=== PATIENT | male | born 1970 | race Caucasian/White ===

== ENCOUNTER 2018-10-22 18:34 | Emergency (ER) | payer BC ==
[~2018-10-22] VITALS: Ht 172.7 cm; Wt 75.1 kg
[2018-10-22 19:06] VITALS: Ht 172.7 cm; Wt 75.1 kg
[2018-10-22] MEDS ORDERED: IPRATROPIUM (NEB) 0.5 MG/2.5 ML AMP INH STA (22:00)
[2018-10-22] MEDS ORDERED: ACETAMINOPHEN 325 MG TAB PO ONE (22:00)
[2018-10-22] MEDS ORDERED: ALBUTEROL 0.5% (NEB) 2.5 MG/0.5 ML AMP INH STA (22:00)
[2018-10-23] MEDS ORDERED: KETOROLAC 30 MG INJ IV STA (00:24)
[2018-10-23] MEDS ORDERED: DEXAMETHASONE 10 MG/ML 1 ML INJ IV ONE (00:30)
[2018-10-23] MEDS ORDERED: AZIT250T PO (01:53)
[2018-10-23] MEDS ORDERED: ALBU18HF INHALATION (01:53)
[2018-10-23] MEDS ORDERED: IBUP-1542 PO (01:53)
[2018-10-23] MEDS ORDERED: BENZ-6 PO (01:53)
--- NOTE | 2018-10-23 02:05 | ERD ---
ER Documentation Chief Complaint Chief Complaint fever and body aches- doesnt feel good since this AM HPI 48-year-old male patient with a past medical history of diabetes and asthma presents to ED complaining of a productive cough, with chest pain, headache, body aches and chills that started earlier this morning. Reports that his granddaughter is also sick with similar symptoms. States that he has not taking any medications. Denies any nausea, vomiting, diarrhea, neck stiffness, abdominal pain. Reports that he takes Lantus and Humulin at home. ROS All systems reviewed and are negative except as per history of present illness. Medications Home Meds Active Scripts Azithromycin* (Zithromax*) 250 Mg Tablet, 250 MG PO .ZPACK DIRECTED, #6 TAB TAKE 500 MG (2 TABS) THE FIRST DAY THEN 250 MG (1 TAB) DAYS 2-5 Prov:LILI BALL PA-C 10/23/18 Ibuprofen* (Motrin*) 600 Mg Tab, 600 MG PO Q6, #30 TAB Prov:LILI BALL PA-C 10/23/18 Albuterol Sulfate* (Ventolin HFA*) 18 Gm Hfa.aer.ad, 2 PUFF INHALATION Q4H, #1 INHALER Prov:LILI BALL PA-C 10/23/18 Benzonatate* (Tessalon Perle*) 100 Mg Capsule, 100 MG PO Q8H PRN for COUGH, #20 CAP Prov:LILI BALL PA-C 10/23/18 PMhx/Soc Medical and Surgical Hx: pt denies Medical Hx, pt denies Surgical Hx Hx Alcohol Use: No Hx Substance Use: No Hx Tobacco Use: No Smoking Status: Never smoker FmHx Family History: No diabetes, No coronary disease Physical Exam Vitals Vital Signs Date Temp Pulse Resp B/P (MAP) Pulse Ox O2 O2 Flow FiO2 Time Delivery Rate 10/23/18 98.1 86 20 112/75 96 Room Air 02:27 (87) 10/22/18 20 95 Room Air 23:53 10/22/18 20 90 Room Air 23:44 10/22/18 92 18 95 21 22:20 10/22/18 100.3 100 20 144/62 99 19:06 (89) Physical Exam Const: Yxt-yga-trxrtxujm, well-nourished. In no acute distress. Head: Atraumatic, normocephalic Eyes: Normal Conjunctiva without injection. No purulent discharge. PERRL. EOMI ENT: Normal external ear. Ear canal without erythema. Tympanic membrane pearly adkins without effusion or bulging. Nasal canal clear with normal turbinates. Moist oropharynx without tonsillar exudates. Non-erythematous pharynx. Uvula midline. No drooling. No trismus. Neck: Full range of motion. No meningismus. No cervical lymphadenopathy. Resp: Inspiratory and expiratory wheezing noted. No rhonchi, rales, or crackles. No accessory muscle use. No retractions. Cardio: Regular rate and rhythm. No murmurs, rubs or gallops. Abd: Soft, non tender, non distended. Normal bowel sounds. No palpable masses. No rebound tenderness. No guarding. Skin: No petechiae or rashes Back: No midline tenderness. No CVA tenderness. Ext: No cyanosis, or edema. Neur: Awake and alert. Psych: Normal Mood and Affect Result Diagram: 10/23/186 10/23/18 0036 Results 24 hrs Laboratory Tests Test 10/22/18 23:47 10/23/18 00:36 Bedside Glucose 96 mg/dL White Blood Count 8.2 10^3/ul Red Blood Count 4.56 10^6/ul Hemoglobin 13.2 g/dl Hematocrit 39.8 % Mean Corpuscular Volume 87.3 fl Mean Corpuscular Hemoglobin 28.9 pg Mean Corpuscular Hemoglobin Concent 33.2 g/dl Red Cell Distribution Width 12.2 % Platelet Count 256 10^3/UL Mean Platelet Volume 9.4 fl Immature Granulocytes % 0.400 % Neutrophils % 75.8 % Lymphocytes % 14.7 % Monocytes % 8.9 % Eosinophils % 0.0 % Basophils % 0.2 % Nucleated Red Blood Cells % 0.0 /100WBC Immature Granulocytes # 0.030 10^3/ul Neutrophils # 6.2 10^3/ul Lymphocytes # 1.2 10^3/ul Monocytes # 0.7 10^3/ul Eosinophils # 0.0 10^3/ul Basophils # 0.0 10^3/ul Nucleated Red Blood Cells # 0.0 10^3/ul Sodium Level 139 mmol/L Potassium Level 3.8 mmol/L Chloride Level 103 mmol/L Carbon Dioxide Level 26 mmol/L Anion Gap 10 Blood Urea Nitrogen 10 mg/dl Creatinine 0.94 mg/dl Est Glomerular Filtrat Rate mL/min > 60 mL/min Glucose Level 162 mg/dl Calcium Level 9.0 mg/dl Troponin I < 0.012 ng/ml Current Medications Medications Dose Sig/Magda Start Time Status Last (Trade) Ordered Route PRN Stop Time Admin Dose Reason Admin Albuterol 10 mg ONCE STAT 10/22/18 DC 10/22/18 (Proventil INH 22:00 22:19 0.5% (Neb)) 10/22/18 22:02 Ipratropium 1 mg ONCE STAT 10/22/18 DC 10/22/18 [place] INH 22:00 22:19 (Atrovent 10/22/18 22:02 0.02% (Neb)) 650 mg ONCE ONCE 10/22/18 DC 10/22/18 Acetaminophen PO 22:00 22:06 (Tylenol 10/22/18 22:02 Tab) 10 mg ONCE ONCE 10/23/18 DC 10/23/18 Dexamethasone IV 00:30 00:43 (Decadron) 10/23/18 00:31 Ketorolac 30 mg ONCE STAT 10/23/18 DC 10/23/18 Tromethamine IV 00:24 00:43 (Toradol) 10/23/18 00:27 Procedures/MDM 48-year-old male patient with a past medical history of diabetes, asthma presents to ED complaining of fever, body aches, productive cough that started earlier this morning. Patient has a low-grade fever 100.3. Tylenol, Toradol 30 mg IV was ordered to further downtrend patient's temperature bolus to improve his pain. He was also given a breathing treatment consisting of albuterol, Atrovent, Decadron 10 mg IV with improvement of his symptoms. Patient was further worked up with CBC, BMP, troponin, chest x-ray, influenza, EKG was ordered to further evaluate patient. EKG reviewed and interpreted by Dr. Reed Rate/Rhythm: [88 bpm, Normal Sinus Rhythm] No ectopy, no ST elevations, normal axis. QRS, ST, T-waves: [No changes consistent w/ acute ischemia] Impression: [No evidence of ischemia or arrhythmia] CXR IMPRESSION: No acute disease. Influenza Negative. Patient likely has bronchitis with wheezing vs asthma exacerbation and will be given a prescription for Zithromax to cover for bacterial etiology. Low suspicion for acute myocardial infarction, pneumothorax, pneumonia, cardiac tamponade, Skmcp-Fdbnyipyq-Exard Syndrome, Brugada Syndrome, pulmonary embolism, AAA, aortic dissection, thoracic aortic dissection, endocarditis, myocarditis, pericarditis, cocaine-related ischemia, Boerhaave's syndrome, cardiac dysrhythmias,meningitis, intracranial bleed, seizure, stroke, TIA or other emergent conditions. CBC: No leukocytosis. No e/o of systemic infection. No e/o anemia. CMP: No e/o severe acidosis, alkalosis, renal failure, diabetic ketoacidosis, liver disease Low suspicion for testicular torsion, gastritis, GERD, peptic ulcer disease, cholecystitis, choledocholithiasis, cholangitis, pancreatitis, appendicitis, bowel obstruction, ileus, volvulus, nephrolithiasis, pyelonephritis, hepatitis, perforated viscus, diverticulitis, abdominal hernia, acute abdomen, mesenteric ischemia or other emergent conditions. Diagnosis: Bronchitis with wheezing, Asthma Discharge medications: Zithromax, ibuprofen, Tessalon Perles, Ventolin Follow up with primary care physician in 1-2 days. Instructed patient to return to the ED sooner for any worsening symptoms. Patient's questions were answered. Patient is hemodynamically stable. Patient understood and agreed with discharge plan. Patient discharged stable. Disclaimer: Inadvertent spelling and grammatical errors are likely due to EHR/dictation software use and do not reflect on the overall quality of patient care. Also, please note that the electronic time recorded on this note does not necessarily reflect the actual time of the patient encounter. Departure Diagnosis: Primary Impression: Fever Fever type: unspecified Qualified Codes: R50.9 - Fever, unspecified Additional Impressions: Cough Wheezing Condition: Stable Patient Instructions: Asthma, Acute (Adult), Bronchitis With Wheezing (Adult) Referrals: COMMUNITY CLINICS YOU HAVE RECEIVED A MEDICAL SCREENING EXAM AND THE RESULTS INDICATE THAT YOU DO NOT HAVE A CONDITION THAT REQUIRES URGENT TREATMENT IN THE EMERGENCY DEPARTMENT. FURTHER EVALUATION AND TREATMENT OF YOUR CONDITION CAN WAIT UNTIL YOU ARE SEEN IN YOUR DOCTORS OFFICE WITHIN THE NEXT 1-2 DAYS. IT IS YOUR RESPONSIBILITY TO MAKE AN APPOINTMENT FOR FOLOW-UP CARE. IF YOU HAVE A PRIMARY DOCTOR --you should call your primary doctor and schedule an appointment IF YOU DO NOT HAVE A PRIMARY DOCTOR YOU CAN CALL OUR PHYSICIAN REFERRAL HOTLINE AT IF YOU CAN NOT AFFORD TO SEE A PHYSICIAN YOU CAN CHOSE FROM THE FOLLOWING [facility][1] [address] [facility] [address] [facility] [address] [facility] [address] [facility] [address] [facility]. [facility] [address] [facility]. [facility] YOU HAVE RECEIVED A MEDICAL SCREENING EXAM AND THE RESULTS INDICATE THAT YOU DO NOT HAVE A CONDITION THAT REQUIRES URGENT TREATMENT IN THE EMERGENCY DEPARTMENT. FURTHER EVALUATION AND TREATMENT OF YOUR CONDITION CAN WAIT UNTIL YOU ARE SEEN IN YOUR DOCTORS OFFICE WITHIN THE NEXT 1-2 DAYS. IT IS YOUR RESPONSIBILITY TO MAKE AN APPOINTMENT FOR FOLOW-UP CARE. IF YOU HAVE A PRIMARY DOCTOR --you should call your primary doctor and schedule and appointment IF YOU DO NOT HAVE A PRIMARY DOCTOR YOU CAN CALL OUR PHYSICIAN REFERRAL HOTLINE AT . IF YOU CAN NOT AFFORD TO SEE A PHYSICIAN YOU CAN CHOSE FROM THE FOLLOWING [facility]: [facility] [address] [place] [address] [facility] [address] [place] [address] [facility] [address] [place] [address] [facility] URGENT CARE/SPECIALTIES Additional Instructions: Call your primary care doctor TOMORROW for an appointment during the next 2-3 days.See the doctor sooner or return here if your condition worsens before your appointment time. LILI BALL PA-C Oct 23, 2018 02:05
[2018-10-23 02:27] VITALS: BP 112/75; PULSE 86; RESP 20
== END 2018-10-23 02:28 | disposition home or self-care (01) ==
LOC: FTE 18:34
DX: R50.9 Fever, unspecified (principal); E11.9 Type 2 diabetes mellitus without complications; J45.901 Unspecified asthma with (acute) exacerbation; R07.9 Chest pain, unspecified; R05 Cough
CPT/HCPCS: 71045; 80048; 82962; 84484; 85025; 87400; 93005; 94644; J1100; J1885; 36415; 96374; 96375

== ENCOUNTER 2018-10-26 14:47 | Emergency (ER) | payer BC ==
[~2018-10-26] VITALS: Ht 170.2 cm; Wt 87.0 kg
[~2018-10-26 14:47] MED LIST: ALBU18HF INHALATION; AZIT250T PO; BENZ-6 PO; IBUP-1542 PO
[2018-10-26 14:57] VITALS: Ht 170.2 cm; Wt 87.0 kg
[2018-10-26] MEDS ORDERED: ALBUTEROL/IPRATROPIUM (NEB) 3 ML AMP HHN STA (18:55)
[2018-10-26] MEDS ORDERED: GUAI118L22 PO (20:38)
[2018-10-26] MEDS ORDERED: LEVO750T25 PO (20:38)
[2018-10-26] MEDS ORDERED: CETI10CA PO (20:46)
--- NOTE | 2018-10-26 21:01 | ERD ---
ER Documentation Chief Complaint Chief Complaint tired, weakness, cough dx w/ bronchitis, denies CP HPI History of Present Illness: She coming in today with complaint of cold symptoms. Associated symptoms include fatigue, weakness, productive cough with green sputum, chills, night sweats, body aches, runny nose, congestion. Recent ER visit 3 days ago, and patient was diagnosed with bronchitis; RX medications given were Ventolin, Tessalon Perles, azithromycin and ER medications include one-time dose of steroids and nebulizer treatments. No sick contacts, no recent travel. Denies nausea vomiting diarrhea constipation dysuria. Past medical history includes asthma, diabetes, eczema. Hospitalization last year due to pneumonia. At home pharmacological/nonpharmacological treatment for symptoms: Patient reports compliance of using medications that was given during last discharge. Last use of Ventolin inhaler today. Social History: Patient denies tobacco, alcohol; positive marijuana use Allergies: See nursing note. Social Concerns: Denies ROS All systems reviewed and are negative except as per history of present illness. Medications Home Meds Active Scripts Cetirizine Hcl* (Zyrtec*) 10 Mg Capsule, 10 MG PO DAILY for cough/runny nose/allergies, #10 TAB.CHEW Prov:THIAGO JORDAN NP 10/26/18 Levofloxacin* (Levaquin*) 750 Mg Tablet, 750 MG PO DAILY for 5 Days, TAB Prov:THIAGO JORDAN NP 10/26/18 Guaifenesin/Codeine Phosphate (CHERATUSSIN AC SYRUP) 118 Ml Liquid, 10 ML PO Q8, #120 ML Prov:THIAGO JORDAN NP 10/26/18 Azithromycin* (Zithromax*) 250 Mg Tablet, 250 MG PO .CaseyPACK DIRECTED, #6 TAB TAKE 500 MG (2 TABS) THE FIRST DAY THEN 250 MG (1 TAB) DAYS 2-5 Prov:LILI BALL PA-C 10/23/18 Ibuprofen* (Motrin*) 600 Mg Tab, 600 MG PO Q6, #30 TAB Prov:LILI BALL-C 10/23/18 Albuterol Sulfate* (Ventolin HFA*) 18 Gm Hfa.aer.ad, 2 PUFF INHALATION Q4H, #1 INHALER Prov:LILI BALL-Vicki 10/23/18 Benzonatate* (Tessalon Perle*) 100 Mg Capsule, 100 MG PO Q8H PRN for COUGH, #20 CAP Prov:LILI BALL PA-C 10/23/18 Allergies Allergies: Coded Allergies: Penicillins (Verified Allergy, Unknown, 10/26/18) cephalexin (Verified Allergy, Unknown, 10/26/18) sulfamethoxazole (Verified Allergy, Unknown, 10/26/18) trimethoprim (Verified Allergy, Unknown, 10/26/18) PMhx/Soc Medical and Surgical Hx: pt denies Medical Hx, pt denies Surgical Hx Hx Alcohol Use: No Hx Substance Use: No Hx Tobacco Use: No Smoking Status: Never smoker FmHx Family History: diabetes Physical Exam Vitals Vital Signs Date Temp Pulse Resp B/P (MAP) Pulse Ox O2 O2 Flow FiO2 Time Delivery Rate 10/26/18 77 18 95 21 19:08 10/26/18 98.4 104 20 127/66 99 14:57 (86) Physical Exam Const: Well appearing, no acute distress Head: Atraumatic Eyes: Normal Conjunctiva ENT: TM's normal bilaterally, clear orapharynx without tonsillar exudate. Clear rhinorrhea. Neck: Full range of motion. No meningismus. No lymphadenopathy. Resp: Clear to auscultation bilaterally. Normal respiratory effort. Diffuse bronchial breath sounds noted. Cardio: Regular rhythm, no murmurs. Tachycardia, heart rate 105. Abd: Soft, non tender, non distended. Normal bowel sounds Skin: No petechia or rashes Ext: No cyanosis, or edema Neur: Awake and alert, appropriate for age Psych: Normal Mood and Affect Results 24 hrs Current Medications Medications Dose Sig/Magda Start Time Status Last (Trade) Ordered Route PRN Stop Time Admin Dose Reason Admin Albuterol/ 6 ml ONCE STAT 10/26/18 DC 10/26/18 Ipratropium HHN 18:55 19:07 (Duoneb) 10/26/18 18:57 Procedures/MDM ED course includes a thorough examination and history. ED course includes medication; nebulizer DuoNeb treatment. Low suspicion for threatening medical emergency or sepsis or emergency that requires hospitalization Otherwise healthy patient presenting with constellation of symptoms likely representing acute frontal sinusitis and bronchitis as characterized by history, physical exam findings. Patient reassessment: She reports being able to breathe "a little bit better" after breathing treatment. Education given regarding levofloxacin black box warning. Return precautions given. Education given. Disposition given. Questions answered. Explained to patient half-life of 48 hours for azithromycin, and medication will continue to work. Due to patient's com orbidities of asthma extensive allergies, will give levofloxacin for bronchitis and acute maxillary sinusitis. No respiratory distress, otherwise relatively well appearing and nontoxic. Patient educated on diagnoses, prescriptions, follow-up care, return precautions. Strict return precautions given for worsening condition; questions answered discharge. Disposition for discharge with followup in 2 days with PCP/clinic for reevaluation of symptoms. Departure Diagnosis: Primary Impression: Bronchitis Additional Impression: Acute frontal sinusitis Recurrence: non-recurrent Qualified Codes: J01.10 - Acute frontal sinusitis, unspecified Condition: Stable Patient Instructions: Bronchitis, Antiobiotic Treatment (Adult), Sinusitis, Abx Tx Referrals: COMMUNITY CLINICS YOU HAVE RECEIVED A MEDICAL SCREENING EXAM AND THE RESULTS INDICATE THAT YOU DO NOT HAVE A CONDITION THAT REQUIRES URGENT TREATMENT IN THE EMERGENCY DEPARTMENT. FURTHER EVALUATION AND TREATMENT OF YOUR CONDITION CAN WAIT UNTIL YOU ARE SEEN IN YOUR DOCTORS OFFICE WITHIN THE NEXT 1-2 DAYS. IT IS YOUR RESPONSIBILITY TO MAKE AN APPOINTMENT FOR FOLOW-UP CARE. IF YOU HAVE A PRIMARY DOCTOR --you should call your primary doctor and schedule an appointment IF YOU DO NOT HAVE A PRIMARY DOCTOR YOU CAN CALL OUR PHYSICIAN REFERRAL HOTLINE AT IF YOU CAN NOT AFFORD TO SEE A PHYSICIAN YOU CAN CHOSE FROM THE FOLLOWING [facility] [address] [facility] [address] [facility] [address] [facility] [address] [facility] [address] [facility]. [facility]. [address] [facility]. [facility] YOU HAVE RECEIVED A MEDICAL SCREENING EXAM AND THE RESULTS INDICATE THAT YOU DO NOT HAVE A CONDITION THAT REQUIRES URGENT TREATMENT IN THE EMERGENCY DEPARTMENT. FURTHER EVALUATION AND TREATMENT OF YOUR CONDITION CAN WAIT UNTIL YOU ARE SEEN IN YOUR DOCTORS OFFICE WITHIN THE NEXT 1-2 DAYS. IT IS YOUR RESPONSIBILITY TO MAKE AN APPOINTMENT FOR FOLOW-UP CARE. IF YOU HAVE A PRIMARY DOCTOR --you should call your primary doctor and schedule and appointment IF YOU DO NOT HAVE A PRIMARY DOCTOR YOU CAN CALL OUR PHYSICIAN REFERRAL HOTLINE AT . IF YOU CAN NOT AFFORD TO SEE A PHYSICIAN YOU CAN CHOSE FROM THE FOLLOWING [facility] INSTITUTIONS: [facility] [address] [place] [address] [facility] [address] [place] [address] [facility] [address] [place] [address] Additional Instructions: Call your primary care doctor TOMORROW for an appointment during the next 2-3 days.See the doctor sooner or return here if your condition worsens before your appointment time. You should be reevaluated by your primary care doctor in 2-3 days to ensure that you are progressing and getting better. Stop antibiotic medication (levofloxacin) and report to your primary care doctor or medical provider if any tendon pain, chest pain, shortness of breath, rest respiratory distress or any worsening signs of your condition. The cough syrup prescription I am giving you today contains codeine; you should not operate heavy machinery while taking his medication. It also contains guaifenesin which is going to help loosen the secretions and help you to cough up the sputum. Continue Ventolin inhaler as ordered on your prior ER visit. Start cetirizine medication I am prescribing today for cough and allergy-like symptoms. Continue Tessalon Perles as needed For cough; these Tessalon Perles will not make you drowsy. THIAGO JORDAN NP Oct 26, 2018 21:01
[2018-10-26 21:19] VITALS: BP 119/72; PULSE 96; RESP 18
== END 2018-10-26 21:21 | disposition home or self-care (01) ==
LOC: FTE 14:47
DX: J40 Bronchitis, not specified as acute or chronic (principal); J01.10 Acute frontal sinusitis, unspecified
CPT/HCPCS: 94664